=== PATIENT | female | born 1975 | race Caucasian/White ===

== ENCOUNTER 2018-08-09 22:16 | Emergency (ER) | payer MEDICAID ==
[~2018-08-09] VITALS: Ht 152.4 cm; Wt 73.5 kg
[~2018-08-09 22:16] MED LIST: IRON; PREN-385 PO
[2018-08-09 22:27] VITALS: BP 127/64
--- NOTE | 2018-08-09 22:30 | NUR ---
PT TRIAGED AND SENT TO ER LOBBY. VSS.
--- NOTE | 2018-08-09 23:27 | NUR ---
PATIENT AMBULATED TO ER BED 8.
--- NOTE | 2018-08-09 23:30 | NUR ---
PT PRESENTS TO ED WITH C/O BILATERAL LEG PAIN. DENIES INJURY OR TRAUMA. NO OBVIOUS DEFORMITY NOTED. NO REDNESS OR SWELLING NOTED. AMBULATROY W OUT ASSIST. PT PLACED INTO BED, PENDING MD SHETTY.
[2018-08-09] MEDS ORDERED: KETOROLAC 30 MG/ML VIAL IM ONE (23:50)
[2018-08-10 00:27] VITALS: BP 127/64
--- NOTE | 2018-08-10 00:27 | NUR ---
Patient discharged with v/s stable. Written and verbal after care instructions given and explained. Patient alert, oriented and verbalized understanding of instructions. Ambulatory with steady gait. All questions addressed prior to discharge. ID band removed. Patient advised to follow up with PMD. Rx of IBUPROFEN, VALIUM, NORCO given. Patient educated on indication of medication including possible reaction and side effects. Opportunity to ask questions provided and answered.
== END 2018-08-10 00:27 | disposition home or self-care (01) ==
LOC: MED 22:16
DX: M54.40 Lumbago with sciatica, unspecified side (principal); M79.605 Pain in left leg
CPT/HCPCS: 96372; 99283; J1885

== ENCOUNTER 2018-09-13 23:01 | Emergency (ER) | payer MEDICAID ==
[~2018-09-13] VITALS: Ht 149.9 cm; Wt 72.6 kg
[2018-09-13 23:10] VITALS: BP 149/66
--- NOTE | 2018-09-13 23:10 | NUR ---
TO BED # 12 AMBULATORY, REPORT GIVEN TO SADIA DAWSON
--- NOTE | 2018-09-13 23:30 | NUR ---
43/F PRESENTS TO ED WITH SON, C/O 04/01 CONSTANT RLQ PAIN, RADIATING TO R LOWER BACK AND R SUPRAPUBIC, X2 DAYS. DENIES N/V. LBM YESTERDAY, REPORTS NORMAL STOOL, DENIES DIARRHEA AND CONSTIPATION. DENIES DYSURIA. AOX4, GCS 15, RR EVEN AND UNLABORED. DENIES MED HX OR RX. OTC TYLENOL AT 1999 WITHOUT RELIEF
--- NOTE | 2018-09-13 23:56 | NUR ---
Dr. Barajas evaluating patient at bedside.
[2018-09-14] MEDS ORDERED: KETOROLAC 30 MG/ML VIAL IM ONE (00:05)
[2018-09-14 00:32] LABS: APPEARANCE,URINE SL CLOUDY (CLEAR); BILIRUBIN,URINE NEGATIVE (NEGATIVE); BLOOD, URINE 1+ (NEGATIVE); COLOR,URINE YELLOW (YELLOW); LEUKOCYTE ESTERASE ,URINE 2+ (NEGATIVE); NITRITE, URINE NEGATIVE (NEGATIVE); UGLUCOSE NEGATIVE (NEGATIVE)
--- NOTE | 2018-09-14 00:33 | NUR ---
PT TAKEN TO CT
[2018-09-14 00:38] LABS: BASOPHILS # (AUTO) 0.1 K/uL (0.00-0.22); BASOPHILS % (AUTO) 1.3 % (0.0-2.0); EOSINOPHILS # (AUTO) 0.2 K/uL (0-0.4); EOSINOPHILS % (AUTO) 2.9 % (0.0-4.0); HEMATOCRIT 37.3 % (36-48); HEMOGLOBIN 12.8 g/dL (12.0-16.0); LYMPHOCYTES # (AUTO) 1.8 K/uL (2.5-16.5); LYMPHOCYTES % (AUTO) 24.5 % (20.5-51.1); MEAN CORPUSCULAR HEMOGLOBIN 31 pg (27-31); MEAN CORPUSCULAR HGB CONC 34 g/dL (33-37); MEAN CORPUSCULAR VOLUME 89.7 fL (80-94); MONOCYTES # (AUTO) 0.6 K/uL (0.8-1.0); NEUTROPHILS # (AUTO) 4.5 K/uL (1.8-7.7); NEUTROPHILS % (AUTO) 63.3 % (42.2-75.2); PLATELET COUNT (AUTO) 278 K/uL (140-450); RED BLOOD CELL COUNT(AUTO) 4.16 MIL/uL (4.20-5.40); RED CELL DISTRIBUTION WIDTH 13.9 % (11.6-13.7); WHITE BLOOD COUNT (AUTO) 7.2 K/uL (4.8-10.8)
[2018-09-14 00:43] LABS: RBC,URINE 11-20 (MOD) /HPF (0-5); WBC,URINE 20-60 /HPF (0-5)
--- NOTE | 2018-09-14 00:48 | NUR ---
PT RETURN FROM CT
[2018-09-14 00:55] LABS: ANION GAP 14.1 (8-16); CARBON DIOXIDE 21.7 mmol/L (21-32); CREATININE 0.6 mg/dL (0.6-1.3); POTASSIUM 3.8 mmol/L (3.5-5.1); TOTAL BILIRUBIN 0.2 mg/dL (0.0-1.0)
[2018-09-14 00:56] LABS: ALBUMIN 3.5 g/dL (3.4-5.0)
--- NOTE | 2018-09-14 01:24 | NUR ---
PT LAYING IN BED, VSS, RR EVEN AND UNLABORED, REPORTS IMPROVEMENT IN RLQ PAIN, 4/10 AT THIS TIME. ALL NEEDS MET.
[2018-09-14 02:38] VITALS: BP 117/55
--- NOTE | 2018-09-14 02:39 | NUR ---
Patient discharged with v/s stable. Written and verbal after care instructions given and explained. Patient alert, oriented and verbalized understanding of instructions. Ambulatory with steady gait. All questions addressed prior to discharge. ID band removed. Patient advised to follow up with PMD. Rx of NAPROSYN, KEFLEX given. Patient educated on indication of medication including possible reaction and side effects. Opportunity to ask questions provided and answered.
== END 2018-09-14 02:39 | disposition home or self-care (01) ==
LOC: MED 23:01
DX: N39.0 Urinary tract infection, site not specified (principal); Z79.899 Other long term (current) drug therapy; Z87.442 Personal history of urinary calculi
CPT/HCPCS: 36415; 74176; 80053; 81001; 81025; 83690; 85025; 87086; 96372; 99284; J1885

== ENCOUNTER 2018-09-24 21:24 | Emergency (ER) | payer MEDICAID ==
[~2018-09-24] VITALS: Ht 152.4 cm; Wt 70.3 kg
[2018-09-24 21:29] VITALS: BP 120/79
--- NOTE | 2018-09-24 21:45 | NUR ---
PT CAME IN WITH A C/O CONSTANT HIGH FLOW OF MENSTRUAL BLEEDING. PATIENT STATED THAT SHE HAS TO CHANGE HER PAD EVERY 40 MINS BECAUSE THE PAD GETS SATURATED WITH BLOOD. PATIENT IS A/O X4, KOREAN SPEAKING, NO N/V, IS DIZZY, 5/10 SUPRA PUBIC PAIN. HR 71, RR 14 , O2 SAT 98%, BP 120/79, 97.1 F, PATIENT IS NOT SOB, LUNGS ARE CLEAR THROUGHOUT, ABDOMEN IS SOFT AND NON DISTENDED, NO PAIN AT PALPATION. URINATION FREQUENCY, HX OF UTI 2 WEEKS AGO. BED IN LOW POSITION, HOB ELEVATED, SON AT BEDSIDE, MONITOR PLACED, WAITING TO BE EVALUATED BY ER MD, WILL CONTINUE TO MONITOR.
--- NOTE | 2018-09-24 22:08 | NUR ---
TO ER BED 12
[2018-09-24 23:33] LABS: BASOPHILS % (AUTO) 0.8 % (0.0-2.0); EOSINOPHILS # (AUTO) 0.2 K/uL (0-0.4); EOSINOPHILS % (AUTO) 3.2 % (0.0-4.0); HEMATOCRIT 33.7 % (36-48); HEMOGLOBIN 11.6 g/dL (12.0-16.0); LYMPHOCYTES % (AUTO) 31.3 % (20.5-51.1); MEAN CORPUSCULAR HEMOGLOBIN 31 pg (27-31); MEAN CORPUSCULAR HGB CONC 34 g/dL (33-37); MEAN CORPUSCULAR VOLUME 89.4 fL (80-94); MONOCYTES # (AUTO) 0.5 K/uL (0.8-1.0); MONOCYTES % (AUTO) 7.6 % (1.7-9.3); NEUTROPHILS # (AUTO) 3.6 K/uL (1.8-7.7); NEUTROPHILS % (AUTO) 57.1 % (42.2-75.2); PLATELET COUNT (AUTO) 288 K/uL (140-450); RED BLOOD CELL COUNT(AUTO) 3.76 MIL/uL (4.20-5.40); RED CELL DISTRIBUTION WIDTH 13.7 % (11.6-13.7); WHITE BLOOD COUNT (AUTO) 6.3 K/uL (4.8-10.8)
[2018-09-24 23:44] LABS: ANION GAP 11.1 (8-16); CARBON DIOXIDE 26.6 mmol/L (21-32); CREATININE 0.8 mg/dL (0.6-1.3); POTASSIUM 3.7 mmol/L (3.5-5.1)
[2018-09-24 23:59] LABS: ALBUMIN 3.5 g/dL (3.4-5.0); FREE T4 (FREE THYROXINE) 0.94 ng/dL (0.76-1.46); THYROID STIMULATING HORMONE 1.42 uIU/mL (0.34-3.74); TOTAL BILIRUBIN 0.2 mg/dL (0.0-1.0)
[2018-09-25 00:20] LABS: APPEARANCE,URINE CLOUDY (CLEAR); BILIRUBIN,URINE NEGATIVE (NEGATIVE); BLOOD, URINE 3+ (NEGATIVE); COLOR,URINE RED (YELLOW); LEUKOCYTE ESTERASE ,URINE NEGATIVE (NEGATIVE); NITRITE, URINE NEGATIVE (NEGATIVE); PH,URINE 6.5 (5.0-9.0); UGLUCOSE NEGATIVE (NEGATIVE)
[2018-09-25] MEDS ORDERED: KETOROLAC 30 MG/ML VIAL IM ONE (00:20)
[2018-09-25 00:42] LABS: RBC,URINE TOO NUMEROUS TO COUN /HPF (0-5); WBC,URINE 0-5 /HPF (0-5)
--- NOTE | 2018-09-25 01:41 | NUR ---
US BEING DONE, TOLERATING PROCEDURE WELL.
[2018-09-25 02:32] VITALS: BP 109/59
--- NOTE | 2018-09-25 02:32 | NUR ---
PATIENT BEING DC BY DOCTOR RAMILA, HR 62, BP, 109/59, O2 SAT 98%, RR 15, PAIN 0/10, TEMP 98.3 F, PADS WERE GIVEN TO CHANGE INTO, PATIENT HAS NO COMPLAIN OF DIZZINESS. PATIENT IS ABLE TO AMBULATE, PATIENT WAS GIVEN AN RX FOR NAPROSYN, ALL DX AND TX INFORMATION TAUGHT AND ALL QUESTIONS ANSWERED. TOLD TO FOLLOW UP WITH PRIMARY PHISICIAN.
== END 2018-09-25 02:32 | disposition home or self-care (01) ==
LOC: MED 21:24
DX: N93.8 Other specified abnormal uterine and vaginal bleeding (principal); Z79.899 Other long term (current) drug therapy
CPT/HCPCS: 36415; 76856; 80053; 81001; 81025; 84439; 84443; 84702; 85025; 86900; 86901; 93976; 96372; 99284; J1885; Q0092

== ENCOUNTER 2018-10-31 01:36 | Emergency (ER) | payer MEDICAID ==
[~2018-10-31] VITALS: Ht 149.9 cm; Wt 70.3 kg
[2018-10-31 01:52] VITALS: BP 132/90
--- NOTE | 2018-10-31 02:03 | NUR ---
Patient taken to bed 12.
--- NOTE | 2018-10-31 02:05 | NUR ---
PT CAME INTO ER WITH C/O RIGHT KNEE PAIN X 1 WEEK. PT STATES SHE HAD PAIN ON AND OFF FOR A LONG TIME BUT THIS WEEK IT PROGRESSIVELY INCREASED. PAIN IS 7/10 AT THIS TIME. PT IS ABLE TO DO SOME ROM WITH LEG. NO SWELLING OR REDNESS NOTED. PT IS A/O X4, ABLE TO RECOGNIZE PERSON PLACE AND TIME. SON AT BEDSIDE. PT IS [place] SPEAKING BUT IS ABLE TO UNDERSTAND MOST [place]OL[place]. ER MD MADE AWARE OF STATUS. SAFETY PRECUATIONS IN [facility]. BED RAIL UP X 1.
--- NOTE | 2018-10-31 02:22 | NUR ---
RAD BEDSIDE WITH PT
[2018-10-31 02:35] VITALS: BP 132/90
--- NOTE | 2018-10-31 02:35 | NUR ---
Patient discharged with v/s stable. Written and verbal after care instructions given and explained. Patient alert, oriented and verbalized understanding of instructions. Ambulatory with steady gait. All questions addressed prior to discharge. ID band removed. Patient advised to follow up with PMD. Rx of NAPROSYN WAS given. Patient educated on indication of medication including possible reaction and side effects. Opportunity to ask questions provided and answered.
== END 2018-10-31 02:35 | disposition home or self-care (01) ==
LOC: MED 01:36
DX: S83.91XA Sprain of unspecified site of right knee, initial encounter (principal); Z79.899 Other long term (current) drug therapy; X58.XXXA Exposure to other specified factors, initial encounter; Y93.89 Activity, other specified; Y92.89 Other specified places as the place of occurrence of the external cause; Y99.8 Other external cause status
CPT/HCPCS: 73562; 99283; Q0092

== ENCOUNTER 2019-05-14 10:25 | Emergency (ER) | payer MEDICAID ==
[~2019-05-14] VITALS: Ht 149.9 cm; Wt 72.6 kg
[2019-05-14 10:30] VITALS: BP 126/71
[2019-05-14] MEDS ORDERED: ONDANSETRON 4 MG ODT PO ONE (10:45)
[2019-05-14] MEDS ORDERED: HYDROcodone/APAP 5/325 MG 1 TAB TAB PO ONE (10:45)
[2019-05-14] MEDS ORDERED: KETOROLAC 30 MG/ML VIAL IM ONE (10:45)
--- NOTE | 2019-05-14 11:08 | NUR ---
PT PRESENTS TO THE ED WITH C/O MIGRAINE SINCE 1999 ON 05/13/2019. PT REPORTS TAKING TYLENOL AT 1999 YESTERDAY AND 0800 TODAY WITH NO RELEIF. PT DENIES N/V/D, BLURRY VISION, CP, AND SOB AT THIS TIME. PT STATES HEADACHE IS SHARP AND RATES PAIN 10/10 AT THIS TIME. STRENGTH EQUAL BILATERALLY, PERRL 3MM BRISK. PT PRESENT WITH A CLEAR SPEECH AND IS CONVERSING APPROPRIATELY. PT POSITIONED FOR COMFORT, HOB ELEVATED, LIGHTS DIMMED. ER AWARE OF PT STATUS. NKA PMH: NONE RX: NONE
--- NOTE | 2019-05-14 12:00 | NUR ---
Patient discharged with v/s stable. Written and verbal after care instructions given and explained. Patient alert, oriented and verbalized understanding of instructions. Ambulatory with steady gait. All questions addressed prior to discharge. ID band removed. Patient advised to follow up with PMD. Rx of ZOFRAN, IBUPROFEN, AND NORCO given. Patient educated on indication of medication including possible reaction and side effects. Opportunity to ask questions provided and answered.
[2019-05-14 12:01] VITALS: BP 128/78
== END 2019-05-14 12:00 | disposition home or self-care (01) ==
LOC: MED 10:25
DX: R51 Headache (principal); Z79.899 Other long term (current) drug therapy
CPT/HCPCS: 96372; 99283; J1885; Q0162

== ENCOUNTER 2019-07-13 09:45 | Emergency (ER) | payer MEDICAID ==
[~2019-07-13] VITALS: Ht 144.8 cm; Wt 73.7 kg
[2019-07-13 09:56] VITALS: BP 114/77
--- NOTE | 2019-07-13 09:56 | NUR ---
PATIENT PRESENTS TO ED WITH C/O LEFT EYE REDNESS AND PAIN SINCE FRIDAY, DENIES PAIN INJURY, +HEADACHE, NO MED HX . PATIENT STATES PAIN OF 8/10 AT THIS TIME; VSS; PATIENT POSITIONED FOR COMFORT; HOB ELEVATED; BEDRAILS UP X2; BED DOWN. ER MD MADE AWARE OF PT STATUS.
--- NOTE | 2019-07-13 11:10 | NUR ---
Patient being evaluated by physician at bedside.
[2019-07-13 11:38] VITALS: BP 114/77
--- NOTE | 2019-07-13 11:38 | NUR ---
Patient discharged TO HOME, Written and verbal after care instructions given and explained. Rx of LORATADINE given. Patient educated on indication of medication including possible reaction and side effects. All questions addressed prior to discharge. ID band removed. Patient advised to follow up with PMD.
== END 2019-07-13 11:38 | disposition home or self-care (01) ==
LOC: MED 09:45
DX: H11.32 Conjunctival hemorrhage, left eye (principal)
CPT/HCPCS: 99282

== ENCOUNTER 2019-08-18 08:34 | Emergency (ER) | payer MEDICAID ==
[~2019-08-18] VITALS: Ht 149.9 cm; Wt 73.5 kg
[2019-08-18 08:38] VITALS: BP 126/75
--- NOTE | 2019-08-18 08:55 | NUR ---
44 Y/O FEMALE C/O POSTERIOR LT KNEE PAIN THAT STARTED YESTERDAY. DENIES TRAUMA/INJURY. NO BRUISING/SWELLING NOTED TO LEG. 10/10 PRESSURE PAIN. PT ABLE TO AMBULATE, BUT STATES INCREASED PAIN. TENDER TO THE TOUCH. HAS NOT TAKEN ANY MEDICATION FOR THE PAIN. SITTING UPRIGHT IN BED AWAKE AND ALERT. X 1 SIDE RAIL RAISED, BED LOCKED AND IN LOW POSITION. VSS MEDHX: DENIES NKA
[2019-08-18] MEDS ORDERED: HYDROcodone/APAP 5/325 MG 1 TAB TAB PO ONE (09:00)
[2019-08-18] MEDS ORDERED: IBUPROFEN 400 MG TAB PO ONE (09:00)
--- NOTE | 2019-08-18 09:08 | NUR ---
XRAY AT BEDSIDE
[2019-08-18 09:57] VITALS: BP 122/80
--- NOTE | 2019-08-18 09:57 | NUR ---
STATES DECREASE IN PAIN 09/30. PT STATES SHE HAS A RIDE HOME.
--- NOTE | 2019-08-18 09:57 | NUR ---
Patient discharged with v/s stable. Written and verbal after care instructions given and explained. Patient alert, oriented and verbalized understanding of instructions. Ambulatory with steady gait. All questions addressed prior to discharge. ID band removed. Patient advised to follow up with PMD. Rx of NAPROSYN AND NORCO given. Patient educated on indication of medication including possible reaction and side effects. Opportunity to ask questions provided and answered.
== END 2019-08-18 09:57 | disposition home or self-care (01) ==
LOC: MED 08:34
DX: M25.562 Pain in left knee (principal); M79.652 Pain in left thigh; Z79.899 Other long term (current) drug therapy
CPT/HCPCS: 29505; 73552; 73562; 99284; Q0092

== ENCOUNTER 2019-10-07 12:40 | Emergency (ER) | payer MEDICAID, SELFPAY ==
[~2019-10-07] VITALS: Ht 152.4 cm; Wt 71.2 kg
[2019-10-07 12:43] VITALS: BP 129/86
[2019-10-07] MEDS ORDERED: KETOROLAC 30 MG/ML VIAL IM ONE (13:15)
[2019-10-07 13:32] LABS: BASOPHILS % (AUTO) 0.5 % (0.0-2.0); EOSINOPHILS % (AUTO) 0.5 % (0.0-4.0); HEMATOCRIT 40.6 % (36-48); HEMOGLOBIN 13.9 g/dL (12.0-16.0); LYMPHOCYTES # (AUTO) 1.4 K/uL (2.5-16.5); MEAN CORPUSCULAR HEMOGLOBIN 31 pg (27-31); MEAN CORPUSCULAR HGB CONC 34 g/dL (33-37); MEAN CORPUSCULAR VOLUME 90.5 fL (80-94); MONOCYTES # (AUTO) 0.5 K/uL (0.8-1.0); MONOCYTES % (AUTO) 12.8 % (1.7-9.3); NEUTROPHILS # (AUTO) 1.7 K/uL (1.8-7.7); NEUTROPHILS % (AUTO) 47.2 % (42.2-75.2); PLATELET COUNT (AUTO) 245 K/uL (140-450); RED BLOOD CELL COUNT(AUTO) 4.49 MIL/uL (4.20-5.40); RED CELL DISTRIBUTION WIDTH 13.7 % (11.6-13.7); WHITE BLOOD COUNT (AUTO) 3.7 K/uL (4.8-10.8)
[2019-10-07 13:50] LABS: ALBUMIN 3.8 g/dL (3.4-5.0); ANION GAP 9.7 (8-16); CARBON DIOXIDE 31.4 mmol/L (21-32); CREATININE 0.7 mg/dL (0.6-1.3); POTASSIUM 4.1 mmol/L (3.5-5.1); TOTAL BILIRUBIN 0.4 mg/dL (0.0-1.0)
[2019-10-07 14:10] LABS: APPEARANCE,URINE CLEAR (CLEAR); BILIRUBIN,URINE NEGATIVE (NEGATIVE); BLOOD, URINE TRACE-I (NEGATIVE); COLOR,URINE YELLOW (YELLOW); LEUKOCYTE ESTERASE ,URINE TRACE (NEGATIVE); NITRITE, URINE NEGATIVE (NEGATIVE); PH,URINE 7.5 (5.0-9.0); UGLUCOSE NEGATIVE (NEGATIVE)
[2019-10-07 14:33] LABS: WBC,URINE 0-5 /HPF (0-5)
[2019-10-07 15:40] VITALS: BP 121/84
[2019-10-08 10:24] LABS: LACTATE DEHYDROGENASE 243 IU/L (0-214)
[2019-10-12 06:08] LABS: LD1 FRACTION 19 % (17-32); LD2 FRACTION 28 % (25-40); LD3 FRACTION 23 % (17-27); LD4 FRACTION 12 % (5-13); LD5 FRACTION 18 % (4-20)
== END 2019-10-07 15:40 | disposition home or self-care (01) ==
LOC: MED 12:40 → EEVIPCON 12:40 → MED 15:40
DX: M79.10 Myalgia, unspecified site (principal); Z20.828 Contact with and (suspected) exposure to other viral communicable diseases; R53.83 Other fatigue; Z79.899 Other long term (current) drug therapy
CPT/HCPCS: 36415; 71045; 80053; 81001; 83615; 83625; 84484; 85025; 87635; 96372; 99284; J1885; Q0092

== ENCOUNTER 2021-01-07 16:17 | Emergency (ER) | payer MEDICAID, SELFPAY ==
[~2021-01-07] VITALS: Ht 149.9 cm; Wt 73.0 kg
[2021-01-07 16:25] VITALS: BP 117/73
--- NOTE | 2021-01-07 16:27 | NUR ---
Patient to bed 7. RN evaluating the patient at bedside.
--- NOTE | 2021-01-07 16:30 | NUR ---
45 y/o F BIB son from home with c/c R knee pain. Patient A&Ox4, ambulatory with a slow, steady gait, states R knee pain starting last night s/p going up set of stairs. Patient reports pain 10/10, poking/constant, non-radiating pain unrelieved with Tylenol @ 1200. Patient denies fall, recent trauma, injury, numbness, tingling, other extremity pain, bladder/bowel symptoms, LOC. Redness noted to R medial knee; no swelling or deformity noted. VSS; RR even/unlabored. Bed locked in lowest position, side rails x 1, call light in reach. PMH/Sx/Meds: Denies KELLYA
--- NOTE | 2021-01-07 17:11 | NUR ---
DONNY Palafox is evaluating patient at bedside.
[2021-01-07] MEDS ORDERED: KETOROLAC 30 MG/ML VIAL IM ONE (17:15)
--- NOTE | 2021-01-07 17:27 | NUR ---
RAD at bedside.
--- NOTE | 2021-01-07 18:17 | NUR ---
[place] provided and lights dimmed for patient comfort. Bed locked in lowest position, side rails x 1, call light in reach. VSS; RR even/unlabored.
[2021-01-07] MEDS ORDERED: NAPR-54 PO (18:19)
[2021-01-07 18:29] VITALS: BP 121/70
== END 2021-01-07 18:31 | disposition home or self-care (01) ==
LOC: MED 16:17
DX: M25.561 Pain in right knee (principal); Z79.899 Other long term (current) drug therapy
CPT/HCPCS: 73562; 96372; 99283; J1885

== ENCOUNTER 2021-08-11 13:07 | Emergency (ER) | payer MEDICAID ==
[~2021-08-11] VITALS: Ht 151.1 cm; Wt 71.8 kg
[~2021-08-11 13:07] MED LIST changes: +NAPR-54 PO
[2021-08-11 13:09] VITALS: BP 118/69
--- NOTE | 2021-08-11 13:20 | NUR ---
PT AMB TO BED 12
[2021-08-11] MEDS ORDERED: KETOROLAC 60 MG/2 ML VIAL IM ONE (13:35)
--- NOTE | 2021-08-11 14:02 | NUR ---
BLOODWORK COLLECTED AND WALKED TO LAB
--- NOTE | 2021-08-11 14:04 | NUR ---
46Y FEMALE BIBA SELF HOME DUE TO R FLANK PAIN X3 DAYS. PT DENIES ANY ABDOMINAL PAIN, CP, SOB, FEVER/CHILLS, N/V. PER PATIENT PAIN IS CURRENTLY 8/10 AND RADIATES DOWN TO HER BUTTOCK REGION. PMH: DENIES NKA
--- NOTE | 2021-08-11 14:08 | NUR ---
Note papomeeta in EDM - 08/11/21 at 1409 by [facility] Patient discharged with v/s stable. Written and verbal after care instructions given and explained. Patient alert, oriented and verbalized understanding of instructions. Ambulatory with steady gait. All questions addressed prior to discharge. ID band removed. Patient advised to follow up with PMD. Rx of AUGMENTIN given. Patient educated on indication of medication including possible reaction and side effects. Opportunity to ask questions provided and answered.
--- NOTE | 2021-08-11 14:19 | NUR ---
PT TAKEN TO CT VIA W/C
--- NOTE | 2021-08-11 14:32 | NUR ---
PT RETURNED TO BED [address] VIA W/C
[2021-08-11 14:36] LABS: BASOPHILS % (AUTO) 0.8 % (0.0-2.0); EOSINOPHILS # (AUTO) 0.2 K/uL (0-0.4); HEMATOCRIT 38.5 % (36-48); HEMOGLOBIN 13.1 g/dL (12.0-16.0); LYMPHOCYTES # (AUTO) 1.6 K/uL (2.5-16.5); LYMPHOCYTES % (AUTO) 30.2 % (20.5-51.1); MEAN CORPUSCULAR HEMOGLOBIN 31 pg (27-31); MEAN CORPUSCULAR HGB CONC 34 g/dL (33-37); MEAN CORPUSCULAR VOLUME 90.4 fL (80-94); MONOCYTES # (AUTO) 0.6 K/uL (0.8-1.0); MONOCYTES % (AUTO) 10.5 % (1.7-9.3); NEUTROPHILS # (AUTO) 2.9 K/uL (1.8-7.7); NEUTROPHILS % (AUTO) 55.5 % (42.2-75.2); PLATELET COUNT (AUTO) 323 K/uL (140-450); RED BLOOD CELL COUNT(AUTO) 4.26 MIL/uL (4.20-5.40); RED CELL DISTRIBUTION WIDTH 13.2 % (11.6-13.7); WHITE BLOOD COUNT (AUTO) 5.3 K/uL (4.8-10.8)
--- NOTE | 2021-08-11 14:55 | NUR ---
urine walked over to lab
[2021-08-11 15:04] LABS: APPEARANCE,URINE CLEAR (CLEAR); BILIRUBIN,URINE NEGATIVE (NEGATIVE); BLOOD, URINE TRACE-I (NEGATIVE); COLOR,URINE YELLOW (YELLOW); LEUKOCYTE ESTERASE ,URINE 2+ (NEGATIVE); NITRITE, URINE NEGATIVE (NEGATIVE); UGLUCOSE NEGATIVE (NEGATIVE)
[2021-08-11 15:10] LABS: WBC,URINE 16-25 (MOD) /HPF (0-5)
[2021-08-11] MEDS ORDERED: CEPH-588 PO (15:18)
[2021-08-11] MEDS ORDERED: IBUP-2213 PO (15:18)
--- NOTE | 2021-08-11 15:53 | NUR ---
Patient appears to be resting comfortably in bed. Vital Signs within normal limits. Respirations even and unlabored.
[2021-08-11 16:12] LABS: ALBUMIN 3.4 g/dL (3.4-5.0); ANION GAP 14.2 (8-16); CARBON DIOXIDE 25.3 mmol/L (21-32); CREATININE 0.3 mg/dL (0.6-1.3); TOTAL BILIRUBIN 1.1 mg/dL (0.0-1.0)
[2021-08-11 16:13] LABS: POTASSIUM 6.5 mmol/L (3.5-5.1)
--- NOTE | 2021-08-11 16:45 | NUR ---
BLOOD REDRAWN AND WALKED DOWN TO LAB
[2021-08-11 17:35] LABS: ALBUMIN 3.5 g/dL (3.4-5.0); CARBON DIOXIDE 24.8 mmol/L (21-32); CREATININE 0.5 mg/dL (0.6-1.3); POTASSIUM 3.8 mmol/L (3.5-5.1); TOTAL BILIRUBIN 0.2 mg/dL (0.0-1.0)
[2021-08-11 18:00] VITALS: BP 113/72
--- NOTE | 2021-08-11 18:00 | NUR ---
Patient discharged with v/s stable. Written and verbal after care instructions given and explained. Patient alert, oriented and verbalized understanding of instructions. Ambulatory with steady gait. All questions addressed prior to discharge. ID band removed. Patient advised to follow up with PMD. Rx of keflex, ibuprofen given. Patient educated on indication of medication including possible reaction and side effects. Opportunity to ask questions provided and answered.
== END 2021-08-11 18:00 | disposition home or self-care (01) ==
LOC: MED 13:07
DX: N39.0 Urinary tract infection, site not specified (principal); Z79.899 Other long term (current) drug therapy
CPT/HCPCS: 36415; 74176; 80053; 81001; 81025; 83690; 85025; 87086; 96372; 99284; J1885

== ENCOUNTER 2021-11-02 10:06 | Emergency (ER) | payer MEDICAID ==
[~2021-11-02] VITALS: Ht 147.3 cm; Wt 70.8 kg
[~2021-11-02 10:06] MED LIST changes: +CEPH-588 PO; +IBUP-2213 PO
[2021-11-02 10:18] VITALS: BP 158/94
--- NOTE | 2021-11-02 10:26 | NUR ---
Patient ambulated with steady gait to bed 2.
--- NOTE | 2021-11-02 10:27 | NUR ---
pt given urine specimen cup, changing in gown at this time
--- NOTE | 2021-11-02 10:30 | NUR ---
46 y/o female, c/o abd pain, diarrhea, "i feel balls in my stomach that are poking me", pain started this morning. denies dysuria, hematuria, vomiting. denies anyone sick at home. denies fever, chills, cough, sore throat, sob, or cp. lungs clear bl, heart sounds even and regular. skin pink/warm/dry. a&ox4 djiboutian speaking, ambulates with even and steady gait. bed down, call light within reach, ermd made aware of pt condition at this time. pmh: denies nka med: denies
--- NOTE | 2021-11-02 10:53 | NUR ---
LAB AT BEDSIDE
[2021-11-02] MEDS ORDERED: FAMOTIDINE 20 MG TAB PO ONE (11:30)
[2021-11-02] MEDS ORDERED: DICYCLOMINE HCL LIQUID 20 MG, ALUMINUM HYD/MAG/SIMETHICONE 30 ML, LIDOCAINE VISCOUS 2% ... PO ONE ×3 (11:30)
[2021-11-02] MEDS ORDERED: ALUMINUM HYD/MAG/SIMETHICONE 30 ML UDC ONE (11:34)
[2021-11-02] MEDS ORDERED: DICYCLOMINE HCL LIQUID 10 MG/5 ML UDC ONE (11:34)
[2021-11-02 11:39] LABS: BASOPHILS % (AUTO) 0.2 % (0.0-2.0); EOSINOPHILS # (AUTO) 0.1 K/uL (0-0.4); EOSINOPHILS % (AUTO) 1.2 % (0.0-4.0); HEMATOCRIT 40.7 % (36-48); HEMOGLOBIN 13.8 g/dL (12.0-16.0); LYMPHOCYTES # (AUTO) 1.1 K/uL (2.5-16.5); LYMPHOCYTES % (AUTO) 10.5 % (20.5-51.1); MEAN CORPUSCULAR HEMOGLOBIN 30 pg (27-31); MEAN CORPUSCULAR HGB CONC 34 g/dL (33-37); MEAN CORPUSCULAR VOLUME 89.3 fL (80-94); MONOCYTES # (AUTO) 0.8 K/uL (0.8-1.0); MONOCYTES % (AUTO) 7.1 % (1.7-9.3); NEUTROPHILS # (AUTO) 8.7 K/uL (1.8-7.7); PLATELET COUNT (AUTO) 322 K/uL (140-450); RED BLOOD CELL COUNT(AUTO) 4.55 MIL/uL (4.20-5.40); RED CELL DISTRIBUTION WIDTH 13.4 % (11.6-13.7); WHITE BLOOD COUNT (AUTO) 10.8 K/uL (4.8-10.8)
--- NOTE | 2021-11-02 11:40 | NUR ---
Ultrasound at bedside.
[2021-11-02 12:09] LABS: APPEARANCE,URINE CLEAR (CLEAR); BILIRUBIN,URINE NEGATIVE (NEGATIVE); BLOOD, URINE 1+ (NEGATIVE); COLOR,URINE YELLOW (YELLOW); LEUKOCYTE ESTERASE ,URINE NEGATIVE (NEGATIVE); NITRITE, URINE NEGATIVE (NEGATIVE); UGLUCOSE NEGATIVE (NEGATIVE)
[2021-11-02 12:26] LABS: RBC,URINE 0-5 /HPF (0-5)
[2021-11-02 12:28] LABS: ALBUMIN 3.9 g/dL (3.4-5.0); ANION GAP 11.6 (8-16); CARBON DIOXIDE 26.1 mmol/L (21-32); CREATININE 0.6 mg/dL (0.6-1.3); POTASSIUM 3.7 mmol/L (3.5-5.1); TOTAL BILIRUBIN 0.4 mg/dL (0.0-1.0)
[2021-11-02 12:30] LABS: CALCIUM OXALATE CRYSTALS,UR None Seen /HPF (None Seen); OTHER CRYSTALS,URINE None Seen /HPF (None Seen); TRICHOMONAS,URINE None Seen /HPF (None Seen); TRIPLE PHOSPHATE CRYSTAL,UR None Seen /HPF (None Seen); URIC ACID CRYSTALS,URINE None Seen /HPF (None Seen); WBC,URINE 0-5 /HPF (0-5); YEAST,URINE None Seen /HPF (None Seen)
[2021-11-02 12:31] LABS: COARSE GRANULAR CASTS,URINE None Seen /LPF (None Seen); FINE GRANULAR CASTS,URINE None Seen /LPF (None Seen); HYALINE CASTS, URINE None Seen /LPF (None Seen); OTHER CASTS, URINE None Seen /LPF (None Seen); RED BLOOD CELL CASTS,URINE None Seen /LPF (None Seen); URINE AMORPHOUS URATE None Seen /HPF (None Seen); WAXY CASTS,URINE None Seen /LPF (None Seen)
--- NOTE | 2021-11-02 13:10 | NUR ---
Patient is laying in bed, vital signs stable. All needs met.
[2021-11-02] MEDS ORDERED: PANTOPRAZOLE 40 MG TABEC PO ONE (13:25)
[2021-11-02] MEDS ORDERED: KETOROLAC 30 MG/ML VIAL IM ONE (13:25)
[2021-11-02] MEDS ORDERED: [UNRECOGNIZED DRUG - CODE] PO (13:30)
[2021-11-02] MEDS ORDERED: PANT40EC PO (13:30)
[2021-11-02] MEDS ORDERED: BEN10 PO (13:30)
[2021-11-02 14:00] VITALS: BP 124/79
--- NOTE | 2021-11-02 14:08 | NUR ---
Patient discharged with v/s stable. Written and verbal after care instructions given. Patient alert, oriented and verbalized understanding of instructions. Ambulatory with steady gait. All questions addressed prior to discharge. ID band removed. Patient advised to follow up with PMD. Rx of bentyl, Bismuth Subsalicylate and Protonix given. Opportunity to ask questions provided and answered.
--- NOTE | 2021-11-02 14:09 | NUR ---
The patient's care was reviewed and supervised by Patito Jaimes RN.
== END 2021-11-02 14:08 | disposition home or self-care (01) ==
LOC: MED 10:06
DX: A08.4 Viral intestinal infection, unspecified (principal); Z79.899 Other long term (current) drug therapy
CPT/HCPCS: 36415; 76705; 80053; 81001; 81025; 83690; 85025; 96372; 99284; J1885; Q0092

== ENCOUNTER 2022-01-30 19:04 | Emergency (ER) | payer MEDICAID ==
[~2022-01-30] VITALS: Ht 154.9 cm; Wt 71.2 kg
[~2022-01-30 19:04] MED LIST changes: +BEN10 PO; +PANT40EC PO; +[UNRECOGNIZED DRUG - CODE] PO
[2022-01-30 19:10] VITALS: BP 141/86
[2022-01-30] MEDS ORDERED: PROM118S5 PO (20:07)
[2022-01-30] MEDS ORDERED: IBUP-2213 PO (20:07)
--- NOTE | 2022-01-30 20:40 | NUR ---
Patient discharged with v/s stable. Written and verbal after care instructions given and explained. Patient alert, oriented and verbalized understanding of instructions. Ambulatory with steady gait. All questions addressed prior to discharge. ID band removed. Patient advised to follow up with PMD. Rx of IBUPROFEN, PEOMETHAZINE given. Patient educated on indication of medication including possible reaction and side effects. Opportunity to ask questions provided and answered.
== END 2022-01-30 20:40 | disposition home or self-care (01) ==
LOC: MED 19:04
DX: U07.1 COVID-19 (principal); R05.9 Cough, unspecified; M79.10 Myalgia, unspecified site; J02.9 Acute pharyngitis, unspecified; Z79.899 Other long term (current) drug therapy
CPT/HCPCS: 99283

== ENCOUNTER 2022-09-14 14:29 | Emergency (ER) | payer MEDICAID ==
[~2022-09-14] VITALS: Ht 154.9 cm; Wt 74.8 kg
[~2022-09-14 14:29] MED LIST changes: +PROM118S5 PO; +[UNRECOGNIZED DRUG - CODE] PO; -[UNRECOGNIZED DRUG - CODE] PO
[2022-09-14 14:42] VITALS: BP 141/83
[2022-09-14] MEDS ORDERED: TETRACAINE HCL/PF 0.5% OPTH 4 ML BTL OP ONE (14:55)
[2022-09-14] MEDS ORDERED: FLUORESCEIN OPTH STRIP 1 MG OP ONE (14:55)
[2022-09-14] MEDS ORDERED: TOMOMETER 1 DEV DEV MC ONE (15:37)
--- NOTE | 2022-09-14 15:50 | NUR ---
HERE FOR PAIN AND REDNESS LEFT EYE, PA AT BS, NO DISTRESS NOTED IN PT
[2022-09-14] MEDS ORDERED: IBUP-2213 PO (16:00)
[2022-09-14] MEDS ORDERED: ERYT5OIN51 OP (16:00)
[2022-09-14 16:10] VITALS: BP 132/75
--- NOTE | 2022-09-14 16:12 | NUR ---
Patient discharged with v/s stable. Written and verbal after care instructions given and explained. Patient verbalized understanding. Ambulatory with steady gait. All questions addressed prior to discharge. Advised to follow up with PMD.
== END 2022-09-14 16:12 | disposition home or self-care (01) ==
LOC: MED 14:29
DX: H10.89 Other conjunctivitis (principal); B96.89 Other specified bacterial agents as the cause of diseases classified elsewhere; Z79.899 Other long term (current) drug therapy; Z79.2 Long term (current) use of antibiotics; Z79.1 Long term (current) use of non-steroidal anti-inflammatories (NSAID)
CPT/HCPCS: 99283

== ENCOUNTER 2023-03-12 09:55 | Emergency (ER) | payer MEDICAID ==
[~2023-03-12] VITALS: Ht 142.2 cm; Wt 74.1 kg
[~2023-03-12 09:55] MED LIST changes: +ERYT5OIN51 OP
[2023-03-12 10:13] VITALS: BP 123/76; PULSE 65; RESP 20; TEMP 97.7; O2SAT 97
[2023-03-12] MEDS ORDERED: KETOROLAC 60 MG/2 ML VIAL IM ONE (11:05)
[2023-03-12] MEDS ORDERED: OMEP40EC24 PO (12:08)
[2023-03-12] MEDS ORDERED: IBUP-2213 PO (12:08)
[2023-03-12 12:24] VITALS: BP 123/76; PULSE 65; RESP 20; TEMP 97.7; O2SAT 97
== END 2023-03-12 12:24 | disposition home or self-care (01) ==
LOC: MED 09:55
DX: R10.13 Epigastric pain (principal); Z79.899 Other long term (current) drug therapy
CPT/HCPCS: 81002; 81025; 96372; 99283; J1885

== ENCOUNTER 2023-04-21 17:46 | Emergency (ER) | payer MEDICAID ==
[~2023-04-21] VITALS: Ht 162.6 cm; Wt 74.4 kg
[~2023-04-21 17:46] MED LIST changes: +OMEP40EC24 PO
[2023-04-21 18:02] VITALS: BP 132/82; PULSE 67; RESP 20; TEMP 98.3; O2SAT 98
[2023-04-21] MEDS ORDERED: KETOROLAC 60 MG/2 ML VIAL IM ONE (18:25)
[2023-04-21 18:33] VITALS: O2SAT 98
[2023-04-21 19:46] VITALS: BP 133/86; PULSE 67; RESP 19
[2023-04-21 20:16] VITALS: O2SAT 99
[2023-04-21] MEDS ORDERED: IBUP-2213 PO (20:37)
== END 2023-04-21 20:46 | disposition home or self-care (01) ==
LOC: MED 17:46
DX: M54.2 Cervicalgia (principal); M54.6 Pain in thoracic spine; M25.512 Pain in left shoulder; R07.89 Other chest pain; Z79.899 Other long term (current) drug therapy
CPT/HCPCS: 93005; 96372; 99283; J1885

== ENCOUNTER 2023-09-27 17:37 | Emergency (ER) | payer MEDICAID, OTHER ==
[~2023-09-27] VITALS: Ht 152.4 cm; Wt 76.7 kg
[2023-09-27 17:43] VITALS: BP 121/82; PULSE 79; RESP 16; TEMP 98; O2SAT 99
[2023-09-27] MEDS ORDERED: LOTC TP (18:26)
[2023-09-27] MEDS: FLUCONAZOLE 100 MG TAB PO ONE (18:43)
== END 2023-09-27 18:46 | disposition home or self-care (01) ==
LOC: MED 17:37
DX: N76.0 Acute vaginitis (principal); B37.31 Acute candidiasis of vulva and vagina; Z79.899 Other long term (current) drug therapy
CPT/HCPCS: 81002; 81025; 99283

== ENCOUNTER 2023-11-07 18:55 | Emergency (ER) | payer OTHER ==
[~2023-11-07] VITALS: Ht 149.9 cm; Wt 74.8 kg
[~2023-11-07 18:55] MED LIST changes: +LOTC TP; +NAPR-337 PO; -NAPR-54 PO
[2023-11-07 19:05] VITALS: BP 152/88; PULSE 72; RESP 18; TEMP 98.1; O2SAT 99
[2023-11-07 19:41] LABS: APPEARANCE,URINE CLEAR (CLEAR); BILIRUBIN,URINE NEGATIVE (NEGATIVE); BLOOD, URINE 2+ (NEGATIVE); COLOR,URINE YELLOW (YELLOW); LEUKOCYTE ESTERASE ,URINE 3+ (NEGATIVE); NITRITE, URINE POSITIVE (NEGATIVE); PROTEIN,URINE NEGATIVE (NEGATIVE); UGLUCOSE NEGATIVE (NEGATIVE); UROBILINOGEN,URINE 0.2 EU/dL (0.2 - 1)
[2023-11-07 19:52] LABS: BACTERIA,URINE 10-30 (MOD) /HPF (None Seen); SQUAMOUS EPITHELIAL CELL,UR 0-3 (FEW) /LPF (0-3 (FEW))
[2023-11-07] MEDS: LORazepam 0.5 MG TAB PO ONE (19:56)
[2023-11-07] MEDS: KETOROLAC 30 MG/ML VIAL IM ONE (20:12)
[2023-11-07] MEDS ORDERED: CEPH250C16 PO (20:23)
[2023-11-07] MEDS ORDERED: [UNRECOGNIZED DRUG - CODE] VG (20:23)
[2023-11-07 20:42] VITALS: BP 152/88; PULSE 72; RESP 18; TEMP 98.1; O2SAT 99
== END 2023-11-07 20:42 | disposition home or self-care (01) ==
LOC: MED 18:55
DX: N30.00 Acute cystitis without hematuria (principal); N95.2 Postmenopausal atrophic vaginitis; Z79.899 Other long term (current) drug therapy
CPT/HCPCS: 81001; 81025; 87086; 87210; 96372; 99284; J1885

== ENCOUNTER 2023-12-02 18:34 | Emergency (ER) | payer OTHER ==
[~2023-12-02] VITALS: Ht 149.9 cm; Wt 74.8 kg
[~2023-12-02 18:34] MED LIST changes: +CEPH250C16 PO; +[UNRECOGNIZED DRUG - CODE] VG
[2023-12-02 18:51] VITALS: BP 125/65; PULSE 75; RESP 18; TEMP 98.2; O2SAT 97
[2023-12-02 19:40] LABS: BILIRUBIN,URINE NEGATIVE (NEGATIVE); BLOOD, URINE 1+ (NEGATIVE); COLOR,URINE YELLOW (YELLOW); LEUKOCYTE ESTERASE ,URINE 1+ (NEGATIVE); NITRITE, URINE NEGATIVE (NEGATIVE); PROTEIN,URINE NEGATIVE (NEGATIVE); UGLUCOSE NEGATIVE (NEGATIVE); UROBILINOGEN,URINE 0.2 EU/dL (0.2 - 1)
[2023-12-02 19:48] LABS: APPEARANCE,URINE SLIGHTLY HAZY (CLEAR)
[2023-12-02 19:54] LABS: BACTERIA,URINE 1+ /HPF (None Seen); MUCUS,URINE None Seen /LPF (None Seen); RBC,URINE 0-5 /HPF (0-5); SQUAMOUS EPITHELIAL CELL,UR 0-3 (FEW) /LPF (0-3 (FEW)); WBC,URINE 0-5 /HPF (0-5)
[2023-12-02] MEDS ORDERED: NITR100C7 PO (20:35)
[2023-12-02] MEDS ORDERED: FLUC150T78 PO (20:35)
== END 2023-12-02 20:39 | disposition home or self-care (01) ==
LOC: MED 18:34
DX: N39.0 Urinary tract infection, site not specified (principal); N95.2 Postmenopausal atrophic vaginitis; B37.31 Acute candidiasis of vulva and vagina; Z79.1 Long term (current) use of non-steroidal anti-inflammatories (NSAID); Z79.2 Long term (current) use of antibiotics; Z79.899 Other long term (current) drug therapy
CPT/HCPCS: 81001; 87086; 99283